=== PATIENT | male | born 1960 | race Caucasian/White ===

== ENCOUNTER 2024-01-22 14:50 | Outpatient (CLI) | payer OTHER, SELFPAY | END 2024-01-22 14:51 | disposition home or self-care (01) | LOC: NFLDUCREF 14:50 | PROVIDERS: PCP Family Medicine; Visit Provider Family Medicine | DX: L03.115 Cellulitis of right lower limb (principal); B95.61 Methicillin susceptible Staphylococcus aureus infection as the cause of diseases classified elsewhere | CPT/HCPCS: 87070; 87186 ==